=== PATIENT | female | born 1990 | race Caucasian/White ===

== ENCOUNTER 2022-07-31 08:47 | Outpatient (CLI) | payer BC, SELFPAY ==
[2022-07-31 13:53] LABS: Cholesterol* 196 mg/dL (90-199)
[2022-07-31 13:54] LABS: Glucose* 89 mg/dL (60-115); HDL Cholesterol* 42 mg/dL (>=50); LDL Cholesterol Calculated 129 mg/dL (<100); Triglycerides* 123 mg/dL (40-149)
== END 2022-07-31 08:48 | disposition home or self-care (01) ==
PROVIDERS: Visit Provider Nurse Practitioner Family
DX: Z13.1 Encounter for screening for diabetes mellitus (principal); Z13.6 Encounter for screening for cardiovascular disorders
CPT/HCPCS: 80061; 82947

== ENCOUNTER 2024-02-25 12:12 | Outpatient (CLI) | payer BC, SELFPAY ==
[2024-02-26 00:22] LABS: Chlamydia DNA Amplified* NOT DETECTED (No Detected); GC DNA Amplified* NOT DETECTED (No Detected)
== END 2024-02-25 12:13 | disposition home or self-care (01) ==
LOC: FRMREF 12:12
PROVIDERS: PCP Nurse Practitioner Family; Visit Provider Registered Nurse
DX: Z11.3 Encounter for screening for infections with a predominantly sexual mode of transmission (principal)
CPT/HCPCS: 87491; 87591